=== PATIENT | female | born 1970 | race Caucasian/White ===

== ENCOUNTER → 2017-08-26 | Outpatient (CLI) | payer MEDICARE, MEDICAID ==
--- NOTE | 2017-08-26 15:50 | RADIOLOGY REPORT (SQ) ---
EXAM DESCRIPTION: CHEST PA/LAT COMPLETED DATE/TIME: 08/26/2017 3:19 pm REASON FOR STUDY: COUGH AND FEVER COMPARISON: Chest films 11/01/2013, 05/13/2016, 05/20/2016 EXAM PARAMETERS: NUMBER OF VIEWS: two views TECHNIQUE: Digital Frontal and Lateral radiographic views of the chest acquired. RADIATION DOSE: NA LIMITATIONS: none FINDINGS: LUNGS AND PLEURA: Bandlike airspace disease left lung base, atelectasis or scarring versus basilar pneumonia. Right lung well inflated and clear. No pleural effusions. No pneumothorax. MEDIASTINUM AND HILAR STRUCTURES: No masses or contour abnormalities. HEART AND VASCULAR STRUCTURES: Heart normal size. No evidence for failure. BONES: Convex rightward lower thoracic scoliosis HARDWARE: None in the chest. OTHER: No other significant finding. IMPRESSION: Bandlike airspace disease left base, could be atelectasis or scarring. Pneumonia could not entirely be excluded TECHNICAL DOCUMENTATION: JOB ID: [id number] [employer]- All Rights Reserved
[2017-08-26 16:02] LABS: HEMATOCRIT 33.9 % (36.0-47.0); HEMOGLOBIN 11.4 g/dL (12.0-15.5); MEAN CORPUSCULAR HGB CONC 33.6 g/dL (32.0-36.0); MEAN CORPUSCULAR VOLUME 92 fl (80-97); PLATELET COUNT 210 10^3/uL (150-450); RED BLOOD COUNT 3.68 10^6/uL (3.72-5.28); RED CELL DISTRIBUTION WIDTH 16.4 % (11.5-14.0); WHITE BLOOD COUNT 10.5 10^3/uL (4.0-10.5)
[2017-08-26 16:16] LABS: ALANINE AMINOTRANSFERASE 65 U/L (9-52); ALBUMIN 3.7 g/dL (3.5-5.0); ALKALINE PHOSPHATASE 195 U/L (38-126); ANION GAP 9 (5-19); ASPARTATE AMINO TRANSFERASE 54 U/L (14-36); BILIRUBIN,DIRECT 0.4 mg/dL (0.0-0.4); BILIRUBIN,TOTAL 0.4 mg/dL (0.2-1.3); BLOOD UREA NITROGEN 15 mg/dL (7-20); CALCIUM 10.1 mg/dL (8.4-10.2); CARBON DIOXIDE 29 mmol/L (22-30); CHLORIDE 105 mmol/L (98-107); GLUCOSE 96 mg/dL (75-110); POTASSIUM 4.8 mmol/L (3.6-5.0); SODIUM 142.8 mmol/L (137-145)
== END ==
LOC: RAD 15:02
PROVIDERS: ATTEND Family Medicine
DX: R05 Cough (principal); R50.9 Fever, unspecified
CPT/HCPCS: 36415; 71046; 80053; 85027

== ENCOUNTER 2019-02-16 19:07 | Emergency (ER) | payer MEDICARE, MEDICAID ==
[2019-02-16] MEDS ORDERED: ACETAMINOPHEN 325 MG TABLET PO ONE (19:38)
--- NOTE | 2019-02-16 19:42 | ER Document Report ---
ED Medical Screen (RME) - General Chief Complaint: Closed Head Injury Stated Complaint: FALL, HEAD PAIN Time Seen by Provider: 02/16/19 19:26 Primary Care Provider: KRISTI JERRY MD [Primary Care Provider] - Follow up as needed Notes: Patient is a nonverbal severely mentally retarded 48-year-old female resident of [facility] who presents to the emergency department with 2 hematomas to the back of her head. She was up in the marnie lift and her foot slipped out of 1 of the harness and she slipped out of the Marnie lift and hit back her head on the bed frame. The caretakers at bedside states that she also has had some hip pain since that incident. Patient has had some head movements that are not her normal head movements. Exam: 2 large hematomas noted to back of head. I have greeted and performed a rapid initial assessment of this patient. A comprehensive ED assessment and evaluation of the patient, analysis of test results and completion of medical decision making process will be conducted by an additional ED providers. TRAVEL OUTSIDE OF THE [place] IN LAST 30 DAYS: No - Related Data Allergies/Adverse Reactions: risperidone [From Risperdal] Allergy (Severe, Verified 02/16/19 19:07) Increases seizure activity pregabalin [From Lyrica] Allergy (Intermediate, Verified 02/16/19 19:07) Rash diphenhydramine [From Benadryl] Allergy (Verified 02/16/19 19:08) hydroxyzine HCl [From Atarax] Adverse Reaction (Intermediate, Verified 02/16/19 19:07) Agitation Past Medical History - Past Medical History Cardiac Medical History: Denies: Hx Coronary Artery Disease, Hx Heart Attack, Hx Hypertension Pulmonary Medical History: Denies: Hx Asthma, Hx Bronchitis, Hx COPD, Hx Pneumonia Neurological Medical History: Reports: Hx Seizures. Denies: Hx Cerebrovascular Accident Renal/ Medical History: Denies: Hx Peritoneal Dialysis Musculoskeltal Medical History: Denies Hx Arthritis Past Surgical History: Denies: Hx Hysterectomy - Immunizations Hx Diphtheria, Pertussis, Tetanus Vaccination: Yes Physical Exam - Vital signs Vitals: Pulse BP Pulse Ox 70 145/82 H 97 02/16/19 19:17 02/16/19 19:17 02/16/19 19:17 Course - Vital Signs Vital signs: Temp Pulse Resp BP Pulse Ox 70 145/82 H 97 02/16/19 19:17 02/16/19 19:17 02/16/19 19:17 Doctor's Discharge - Discharge Referrals: KRISTI JERRY MD [Primary Care Provider] - Follow up as needed
--- NOTE | 2019-02-16 20:24 | ER Document Report ---
ED General - General Chief Complaint: Closed Head Injury Stated Complaint: FALL, HEAD PAIN Time Seen by Provider: 02/16/19 19:26 Primary Care Provider: KRISTI JERRY MD [Primary Care Provider] - Follow up in 3-5 days TRAVEL OUTSIDE OF THE [place] IN LAST 30 DAYS: No - HPI Notes: Patient is a 48-year-old female that presents to the emergency department for chief complaint of head injury. HPI provided by caregiver at bedside. Patient was at a longterm and has cerebral palsy with developmental delay. Patient is wheelchair-bound at baseline. She was being moved today from her bed into the wheelchair using a Marnie lift when 1 of the straps on the left leg side leg going. Patient fell forward landing on her left side. She did hit her head on the left. There was no report of loss of consciousness. Patient is unable to verbalize and does not express pain normally. Caregivers believe that she may be having some tenderness in her left hip. They also noticed left-sided cephalhematoma. Caregiver was concerned that her pupils looked pinpoint. She is not on any opiate medicines at home. They do report she is at her baseline mentation currently. Past Medical History: Cerebral palsy Past Surgical History: Reviewed in chart Social History: Lives at longterm Family History: Reviewed and noncontributory for presenting illness Allergies: Reviewed, see documented allergy list. REVIEW OF SYSTEMS: Unable to obtain because of baseline nonverbal status PHYSICAL EXAMINATION: Vital signs reviewed, nursing noted reviewed. GENERAL: Well-appearing, overweight and in no acute distress. HEAD: Left occipital cephalohematoma with overlying abrasion, no active bleeding, no bony fluctuance EYES: Eyes appear normal, extraocular movements intact, sclera anicteric, conjunctiva are normal. ENT: nares patent, no drooling, oropharynx clear without exudates. Moist mucous membranes. NECK: No midline cervical spine tenderness, normal range of motion, supple wi thout lymphadenopathy LUNGS: Breath sounds clear to auscultation bilaterally and equal. No wheezes rales or rhonchi. HEART: Regular rate and rhythm without murmurs ABDOMEN: Soft, no apparent tenderness. No rebound, guarding, or rigidity. EXTREMITIES: Nontender, no long bone deformity, no apparent pain with passive range of motion of bilateral hips knees and ankles, 1+ pitting edema symmetric lower extremities. NEUROLOGICAL: Alert, spastic quadriparesis SKIN: Warm, Dry, normal turgor, abrasion over cephalhematoma without bleeding, no lacerations. - Related Data Allergies/Adverse Reactions: risperidone [From Risperdal] Allergy (Severe, Verified 02/16/19 19:07) Increases seizure activity pregabalin [From Lyrica] Allergy (Intermediate, Verified 02/16/19 19:07) Rash diphenhydramine [From Benadryl] Allergy (Verified 02/16/19 19:08) hydroxyzine HCl [From Atarax] Adverse Reaction (Intermediate, Verified 02/16/19 19:07) Agitation Past Medical History - Social History Smoking Status: Never Smoker Family History: Reviewed & Not Pertinent Patient has suicidal ideation: No Patient has homicidal ideation: No - Past Medical History Cardiac Medical History: Denies: Hx Coronary Artery Disease, Hx Heart Attack, Hx Hypertension Pulmonary Medical History: Denies: Hx Asthma, Hx Bronchitis, Hx COPD, Hx Pneumonia Neurological Medical History: Reports: Hx Seizures. Denies: Hx Cerebrovascular Accident Renal/ Medical History: Denies: Hx Peritoneal Dialysis Musculoskeletal Medical History: Denies Hx Arthritis Past Surgical History: Denies: Hx Hysterectomy - Immunizations Hx Diphtheria, Pertussis, Tetanus Vaccination: Yes Hx Pneumococcal Vaccination: 06/11/08 Physical Exam - Vital signs Vitals: Pulse BP Pulse Ox 70 145/82 H 97 02/16/19 19:17 02/16/19 19:17 02/16/19 19:17 Course - Re-evaluation Re-evalutation: 02/16/19 20:24 Vitals reviewed. Nursing notes reviewed. Patient is at her baseline mental status. She does have a significant hematoma to her left occipital region. CT scan of her head and cervical spine has been ordered for her head injury. Patient has no other long bone deformity or external signs of injury. It is difficult to fully assess her pain because of the cerebral palsy. Chest x-ray and pelvis x-ray have also been ordered to screen for further imaging injury. Currently patient appears to be resting comfortably. 02/16/19 22:05 Patient's images so no acute injury from today including intracranial hemorrhage or cervical spine fracture. Patient does have degenerative changes in her left hip, she is wheelchair bound at baseline and is tolerating transferring without appearing to be severely uncomfortable. I do not clinically suspect occult hip fracture at this point. Patient will be discharged back to care facility. Return precautions given to caregivers. Cervical Spine CT 02/16/19 19:34 IMPRESSION: Probable acute paranasal sinusitis. No acute fracture or subluxation Head CT 02/16/19 19:34 IMPRESSION: Scalp soft tissue hematoma and swelling. Probable acute paranasal sinusitis. No acute intracranial abnormality. Chest X-Ray 02/16/19 20:16 IMPRESSION: No acute cardiopulmonary process copyright 2010 [employer]- All Rights Reserved Pelvis X-Ray 02/16/19 20:16 IMPRESSION: No fracture or dislocation. Severe degenerative changes involving the left hip joint. copyright 2010 [employer]- All Rights Reserved - Vital Signs Vital signs: Temp Pulse Resp BP Pulse Ox 70 145/82 H 97 02/16/19 19:17 02/16/19 19:17 02/16/19 19:17 Discharge - Discharge Clinical Impression: Closed head injury Qualifiers: Encounter type: initial encounter Qualified Code(s): S09.90XA - Unspecified injury of head, initial encounter Traumatic cephalohematoma Qualifiers: Encounter type: initial encounter Qualified Code(s): S00.93XA - Contusion of unspecified part of head, initial encounter Condition: Stable Disposition: HOME, SELF-CARE Instructions: Head Injury Precautions ([facility]) Additional Instructions: Please return to the emergency department if you have any worsening, or concern of your symptoms. Please return to the emergency department if you develop chest pain, difficulty breathing, severe abdominal pain, or ongoing vomiting. Please follow-up with your primary care physician in 2-3 days and any other recommended physicians. If prescribed, take all medications as directed. If you have any questions or concerns do not hesitate to return the emergency department for evaluation. Apply ice to the cephalohematoma 1-2 times a day for 15 minutes at a time to help with swelling. This will resolve on its own in the next few weeks. Referrals: KRISTI JERRY MD [Primary Care Provider] - Follow up in 3-5 days
--- NOTE | 2019-02-16 21:56 | RADIOLOGY REPORT (SQ) ---
EXAM DESCRIPTION: XR CHEST 1 VIEW COMPLETED DATE/TME: 02/16/2019 20:16 CLINICAL HISTORY: 48 years, Female, trauma COMPARISON: 08/26/2017 chest NUMBER OF VIEWS: 1 TECHNIQUE: Portable semierect chest LIMITATIONS: None FINDINGS: Soft tissues overlie the right hemithorax, limiting the exam. Severe scoliosis of the thoracolumbar spine. The heart size is normal. Osteopenia. Low lung volumes however the lungs appear clear. No pneumothorax IMPRESSION: No acute cardiopulmonary process copyright 2010 [employer]- All Rights Reserved
--- NOTE | 2019-02-16 21:58 | RADIOLOGY REPORT (SQ) ---
EXAM DESCRIPTION: XR PELVIS 1-2 VIEWS COMPLETED DATE/TME: 02/16/2019 20:16 CLINICAL HISTORY: 48 years, Female, trauma COMPARISON: None. NUMBER OF VIEWS: TECHNIQUE: LIMITATIONS: None. FINDINGS: No fracture or dislocation. There are severe degenerative changes involving the left hip joint. IMPRESSION: No fracture or dislocation. Severe degenerative changes involving the left hip joint. copyright 2010 [employer]- All Rights Reserved
--- NOTE | 2019-02-16 22:00 | RADIOLOGY REPORT (SQ) ---
EXAM DESCRIPTION: CT HEAD WITHOUT IV CONTRAST COMPLETED DATE/TME: 02/16/2019 19:34 CLINICAL HISTORY: 48 years, Female, fall EXAM DESCRIPTION: CLINICAL HISTORY: fall COMPARISON: None Available TECHNIQUE: Contiguous axial CT images of the head were obtained. Coronal and sagittal reconstructions were created from the axial data. This exam was performed according to our departmental dose-optimization program, which includes automated exposure control, adjustment of the mA and/or kV according to patient size and/or use of iterative reconstruction technique. FINDINGS: Positioning limits detail. There is scattered bilateral encephalomalacia. There is posterior scalp soft tissue swelling and probable hematoma, incompletely imaged. There is fluid and moderate mucosal thickening in the left maxillary sinus. This could reflect acute paranasal sinusitis. Facial bone fracture is less likely. No fracture is seen. There is no evidence of acute mass, mass effect, midline shift or hemorrhage. IMPRESSION: Scalp soft tissue hematoma and swelling. Probable acute paranasal sinusitis. No acute intracranial abnormality.
--- NOTE | 2019-02-16 22:04 | RADIOLOGY REPORT (SQ) ---
EXAM DESCRIPTION: CT CERVICAL SPINE WITHOUT IV CONTRAST COMPLETED DATE/TME: 02/16/2019 19:34 CLINICAL HISTORY: 48 years, Female, fall COMPARISON: None. TECHNIQUE: Images stored on PACS. All CT scanners at this facility use dose modulation, iterative reconstruction, and/or weight based dosing when appropriate to reduce radiation dose to as low as reasonably achievable (ALARA). [facility]: Dose Right [facility]: CareDose [facility]: Dose Right [facility]: Teradose 4D [facility]: [place] EXAM DESCRIPTION: CLINICAL HISTORY: fall COMPARISON: None Available TECHNIQUE: Contiguous axial images of the cervical spine were obtained without the administration of intravenous contrast followed by reconstruction images. This exam was performed according to our departmental dose-optimization program, which includes automated exposure control, adjustment of the mA and/or kV according to patient size and/or use of iterative reconstruction technique. FINDINGS: Positioning limits detail. There is fluid in the left mastoid air cells. Fluid and mucosal thickening are seen in the left maxillary sinus. There are bony degenerative changes. There is no acute fracture or subluxation. Prevertebral soft tissues are within normal limits. IMPRESSION: Probable acute paranasal sinusitis. No acute fracture or subluxation
[2019-02-16 23:04] VITALS: BP 125/75
== END 2019-02-16 23:08 | disposition home or self-care (01) ==
LOC: ER 19:07
DX: S00.03XA Contusion of scalp, initial encounter (principal); W17.89XA Other fall from one level to another, initial encounter; Y93.89 Activity, other specified; Y92.193 Bedroom in other specified residential institution as the place of occurrence of the external cause; R60.0 Localized edema; G80.9 Cerebral palsy, unspecified; Z99.3 Dependence on wheelchair; Z88.8 Allergy status to other drugs, medicaments and biological substances; Z88.6 Allergy status to analgesic agent
CPT/HCPCS: 99284; 71045; 72170; 70450; 72125; A9270